=== PATIENT | female | born 1995 | race Hispanic/Latino ===

== ENCOUNTER → 2022-01-11 13:12 | Outpatient (CLI) | payer OTHER, SELFPAY | PROVIDERS: Visit Provider Nurse Practitioner Family | DX: L02.91 Cutaneous abscess, unspecified (principal) | CPT/HCPCS: 87070; 87075; 87077; 87147; 87205 ==

== ENCOUNTER → 2023-05-31 15:33 | Outpatient (CLI) | payer OTHER, SELFPAY | PROVIDERS: Visit Provider Nurse Practitioner Adult Health | DX: B37.31 Acute candidiasis of vulva and vagina (principal) | CPT/HCPCS: 87491; 87591; 87661; 87798; 87801 ==